=== PATIENT | female | born 1970 | race Two or more races ===

== ENCOUNTER 2020-07-24 07:33 | Emergency (ER) | payer MEDICAID, OTHER ==
[~2020-07-24] VITALS: Ht 162.6 cm; Wt 72.6 kg
[2020-07-24 09:02] VITALS: BP 116/69
[2020-07-24] MEDS ORDERED: METHOCARBAMOL 500 MG TAB PO ONE (09:15)
[2020-07-24] MEDS ORDERED: KETOROLAC TROMETH 60MG/2ML VIAL IM ONE (09:15)
== END 2020-07-24 09:59 | disposition home or self-care (01) ==
LOC: EDBD 07:33 → ER 07:33
DX: M54.31 Sciatica, right side (principal); Z88.0 Allergy status to penicillin
CPT/HCPCS: 96372; 99283; J1885

== ENCOUNTER → 2022-09-09 | Emergency (ER) | payer MEDICAID | END | disposition left against medical advice (07) | LOC: ER 13:46 | DX: T14.90XA Injury, unspecified, initial encounter (principal); Z53.21 Procedure and treatment not carried out due to patient leaving prior to being seen by health care provider; W19.XXXA Unspecified fall, initial encounter; Y93.9 Activity, unspecified; Y92.9 Unspecified place or not applicable; Y99.9 Unspecified external cause status ==

== ENCOUNTER 2023-03-13 21:06 | Emergency (ER) | payer MEDICAID ==
[~2023-03-13] VITALS: Ht 157.5 cm; Wt 91.6 kg
[2023-03-13 21:31] VITALS: BP 143/86; PULSE 68; RESP 20; O2SAT 100
[2023-03-13 22:00] LABS: Urine Bacteria FEW /hpf (None Seen); Urine Blood 2+ /uL (Negative); Urine Specific Gravity 1.011 (1.001-1.035); Urine WBC 1 /hpf (0 - 5)
[2023-03-13 22:16] LABS: Basophils # (auto) 0 10 ^3/uL (0-0.2); Eosinophils # (auto) 0.2 10 ^3/uL (0-0.8); Hemoglobin 10.2 g/dL (12.2-16.2); Mean Corpuscular Hemoglobin 24.4 pg (28.0-32.0); Monocytes # (auto) 0.5 10 ^3/uL (0-1.3); Neutrophils # (auto) 3.5 10 ^3/uL (1.6-8.6); Red Blood Cells 4.18 10^6/uL (4.0-5.20)
[2023-03-13 22:18] LABS: Basophils % (auto) 0.5 % (0.0-2.0); Eosinophils % (auto) 3.1 % (0.0-7.0); Hematocrit 32.3 % (36.0-46.0); Lymphocytes # (auto) 3.1 10 ^3/uL (0.4-5.4); Lymphocytes % (auto) 41.7 % (10.0-50.0); Mean Corpuscular Hgb Conc. 31.5 g/dL (32.0-36.0); Mean Corpuscular Volume 77.4 fL (80.0-100.0); Neutrophils % (auto) 47.7 % (37.0-80.0); Red Cell Distribution Width 16.6 % (11.8-14.3); White Blood Cell 7.4 10^3/uL (4.4-10.8)
[2023-03-13 22:33] LABS: Albumin 3.6 g/dL (3.4-5.0); Calcium 9.3 mg/dL (8.5-10.1)
[2023-03-13 22:36] LABS: BUN/Creatinine Ratio 14.9 (10.0-20.0); Bilirubin, Total 0.4 mg/dL (0.2-1.0); Total Protein 7.7 g/dL (6.4-8.2)
== END 2023-03-14 00:19 | disposition home or self-care (01) ==
LOC: ER 21:09
DX: N92.6 Irregular menstruation, unspecified (principal); E66.01 Morbid (severe) obesity due to excess calories; Z68.36 Body mass index [BMI] 36.0-36.9, adult; Z88.0 Allergy status to penicillin
CPT/HCPCS: 36415; 80053; 81001; 85025; 86850; 86900; 86901

== ENCOUNTER 2023-04-02 18:51 | Emergency (ER) | payer MEDICAID ==
[~2023-04-02] VITALS: Ht 157.5 cm; Wt 93.6 kg
[2023-04-02 19:33] VITALS: BP 146/71
[2023-04-02] MEDS ORDERED: KETOROLAC TROMETH 30 MG/ML 1ML VIAL IM ONE (22:00)
[2023-04-02] MEDS ORDERED: IBUP-1456 PO (22:04)
== END 2023-04-02 22:21 | disposition home or self-care (01) ==
LOC: ER 18:51
DX: G89.29 Other chronic pain (principal); M25.562 Pain in left knee; M25.561 Pain in right knee; M54.50 Low back pain, unspecified; E11.9 Type 2 diabetes mellitus without complications; J45.909 Unspecified asthma, uncomplicated; M19.90 Unspecified osteoarthritis, unspecified site; Z88.0 Allergy status to penicillin; Z79.1 Long term (current) use of non-steroidal anti-inflammatories (NSAID)
CPT/HCPCS: 96372; 99283; J1885

== ENCOUNTER 2023-08-16 16:37 | Emergency (ER) | payer MEDICAID ==
[~2023-08-16] VITALS: Ht 170.2 cm; Wt 95.2 kg
[~2023-08-16 16:37] MED LIST: IBUP-1456 PO
[2023-08-16] MEDS ORDERED: traMADol HCL 50 MG TAB PO ONE (17:45)
[2023-08-16 18:08] VITALS: BP 141/85; PULSE 103; RESP 15; TEMP 98.7; O2SAT 98
[2023-08-16] MEDS ORDERED: PERCOT PO (18:47)
== END 2023-08-16 19:00 | disposition home or self-care (01) ==
LOC: ER 16:37
DX: M25.562 Pain in left knee (principal); M25.561 Pain in right knee; J45.909 Unspecified asthma, uncomplicated; E11.9 Type 2 diabetes mellitus without complications; Z88.0 Allergy status to penicillin

== ENCOUNTER 2025-01-03 14:41 | Emergency (ER) | payer MEDICAID ==
[~2025-01-03] VITALS: Ht 165.1 cm; Wt 66.5 kg
[~2025-01-03 14:41] MED LIST changes: +PERCOT PO
[2025-01-03 15:08] VITALS: BP 119/77; PULSE 83; RESP 16; TEMP 97.6; O2SAT 99
--- NOTE | 2025-01-03 15:34 | ED.PDOC ---
Musculoskeletal HPI Comments 54-year-old female presented to the [facility] (formerly [facility]) complaining of left shoulder and also the right knee, the left shoulder she fell sometime three weeks ago and four the right knee, patient is post of total knee replacement and she stays she is still having pain in a around the knee and she can not Band-Aid as much as she want to Chief Complaint: Fall Injury Time Seen by MD: 15:04 Primary Care Provider: UNKNOWN Reviewed Notes: Nurses Notes, Medications, Allergies Allergies: Coded Allergies: Penicillins (Verified Allergy, Unknown, 07/24/20) Home Meds Active Scripts Cyclobenzaprine Hcl (Cyclobenzaprine Hcl) 10 Mg Tab, 10 MG PO TID for 10 Days, #30 TAB Prov:HILLARY PEGUERO MD 01/03/25 Diclofenac Potassium (Diclofenac Potassium) 50 Mg Tab, 1 TAB PO TIDP for 10 Days, #30 TAB Prov:HILLARY PEGUERO MD 01/03/25 Oxycodone W/ Acetaminophen (Percocet 5/325MG) 1 Tab Tb, 1 TAB PO Q8HP PRN, #20 TAB Prov:MAIN ARTHUR 08/16/23 Ibuprofen (Ibuprofen) 800 Mg Tab, 1 TAB PO Q6HP PRN, #30 TAB 0 Refills Prov:KAVON GRIGGS 04/02/23 Information Source: Patient Mode of Arrival: Ambulatory Location: Left, Right Extremity Location: Knee, Shoulder Timing: Hours Severity: Mild, Moderate Able to Move Extremity: Yes Bear Weight: Fully Pain: Moderate Hand Dominance: Right Mechanism: None Circumstances: Fall Onset of Symptoms: After Trauma Symptoms: Pain Last Tetanus: UTD Associated signs and symptoms: Shoulder pain Past Medical History PAST MEDICAL HISTORY: Arthritis, Asthma, DM Surgical History (Other): Right knee total Tummy tuck REPORTING CONSULTANT History: No Pertinent REPORTING CONSULTANT History Family History Family History: Reviewed,noncontributory to illness Social History Smoker: Non-Smoker Alcohol: Denies ETOH Use Drugs: Denies Drug Use Lives In: Home Constitutional: denies: chills, diaphoresis, fatigue, fever, malaise, sweats, weakness, others EENTM: denies: blurred vision, double vision, ear bleeding, ear discharge, ear drainage, ear pain, ear ringing, eye pain, eye redness, hearing loss, mouth pain, mouth swelling, nasal discharge, nose bleeding, nose congestion, nose pain, photophobia, tearing, throat pain, throat swelling, voice changes, others Respiratory: denies: cough, hemoptysis, orthopnea, SOB at rest, shortness of breath, SOB with excertion, stridor, wheezing, others Cardiovascular: denies: chest pain, dizzy spells, diaphoresis, Dyspnea on exertion, edema, irregular heart beat, left arm pain, lightheadedness, palpitations, PND, syncope, others Gastrointestinal: denies: abdomen distended, abdominal pain, blood streaked bowels, constipated, diarrhea, dysphagia, difficulty swallowing, hematemesis, melena, nausea, poor appetite, poor fluid intake, rectal bleeding, rectal pain, vomiting, others Genitourinary: denies: abnormal vagina bleeding, burning, dyspareunia, dysuria, flank pain, frequency, hematuria, incontinence, pain, , vagina discharge, urgency, others Neurological: denies: dizziness, fainting, headache, left sided numbness, left sided weakness, numbness, paresthesia, pre-existing deficit, right sided numbness, right sided weakness, seizure, speech problems, tingling, tremors, weakness, others Musculoskeletal: reports: joint pain, muscle stiffness, others (Left shoulder bicipital bursitis and right knee painful postop); denies: back pain, gout, joint swelling, muscle pain, neck pain Integumetry: denies: bruises, change in color, change in hair/nails, dryness, laceration, lesions, lumps, rash, wounds, others Allergic/Immunocompromised: denies: Difficulty Healing, Frequent Infections, Hives, Itching, others Hematologic/Lymphatic: denies: anemia, blood clots, easy bleeding, easy bruising, swollen glands, others Endocrine: denies: excessive hunger, excessive sweating, excessive thirst, excessive urination, flushing, intolerance to cold, intolerance to heat, unexplained weight gain, unexplained weight loss, others Psychiatric: denies: anxiety, bipolar disorder, depression, hopeless, panic disorder, schizophrenia, sleepless, suicidal, others All Other Systems: Reviewed and Negative Physical Exam General Appearance: Mild Distress HEENT: Normal ENT Inspection, PERRL/EOMI Neck: Full Range of Motion, Non-Tender, Normal, Normal Inspection Respiratory: Chest Non-Tender, Lungs Clear, No Accessory Muscle Use, No Respiratory Distress, Normal Breath Sounds Cardiovascular: No Edema, No JVD, No Murmur, No Gallop, Normal Peripheral Pulses, Regular Rate/Rhythm Breast Exam: Deferred Gastrointestinal: No Organomegaly, Non Tender, No Pulsatile Mass, Normal Bowel Sounds, Soft Genitalia: Deferred Pelvic: Deferred Rectal: Deferred Extremities: Decreased range of motion, No calf tenderness, Normal capillary refill, Normal inspection, Normal range of motion, Non-tender, No pedal edema, Tender Musculoskeletal : Location: Right Extremity Location: Knee, Shoulder Apperance: Limited ROM, Tenderness: Mild, Tenderness: Moderate Neurologic: Alert, shoe turner II-XII nml as Tested, No Motor Deficits, Normal Affect, Normal Mood, No Sensory Deficits Cerebellar Function: Normal Reflexes: Normal Skin: Dry, Normal Color, Warm Peripheral Pulses: 1+ carotid (R), 1+ carotid (L) Lymphatic: No Adenopathy Was a procedure done? Was a procedure done?: No Differential Diagnosis EXT Differential Diagnosis: Sprain, Arthritis, Bursitis X-Ray, Labs, Meds, VS Vital Signs Date Time Temp Pulse Resp B/P (MAP) Pulse Ox O2 Delivery O2 Flow Rate FiO2 01/03/25 15:08 97.6 83 16 119/77 (91) 99 97.6 01/03/25 15:08 83 16 99 Room Air 01/03/25 14:58 97.6 83 16 119/77 (91) 99 97.6 X-Ray, Labs, Meds, VS Comment [facility] in the [facility] patient had a fall last month and hurt her left shoulder She has tender right knee from total knee replacement The x-ray to the left shoulder is normal Patient will be discharged home to follow up with her PCP Time of 1ST Reevaluation: 15:04 Reevaluation 1ST: Unchanged Time of 2ND Reevaluation: 16:51 Reevaluation 2ND: Unchanged Consultation: PCP Patient Education/Counseling: Diagnosis, Treatment, Prognosis, Need For Follow Up Family Education/Counseling: Diagnosis, Treatment, Prognosis, Need For Follow Up Departure 1 Departure Time of Disposition: 16:49 Impression: Primary Impression: Fall at home Additional Impressions: Bursitis of left shoulder Bilateral chronic knee pain Disposition: 01 HOME / SELF CARE / HOMELESS Condition: Fair Additional Instructions: Use shower on the left shoulder You with the orthopedist for the right knee e-Prescriptions Cyclobenzaprine Hcl (Cyclobenzaprine Hcl) 10 Mg Tab 10 MG PO TID for 10 Days, #30 TAB Prov: HILLARY PEGUERO MD 01/03/25 Diclofenac Potassium (Diclofenac Potassium) 50 Mg Tab 1 TAB PO TIDP for 10 Days, #30 TAB Prov: HILLARY PEGUERO MD 01/03/25 Discharged With: Self Critical Care Note Critical Care Time?: No Stability Stability form required: No Heart Score Heart Score: Heart Score Response (Comments) Value History N/A 0 EKG N/A 0 Age 45-64 1 Risk Factors 1 or 2 risk factors 1 Troponin N/A 0 Total 2 HILLARY PEGUERO MD Jan 03, 2025 15:34
--- NOTE | 2025-01-03 16:09 | DVH ---
CLINICAL INDICATION: fall TECHNIQUE: 2-view left shoulder XY L SHOULDER 2+ VIEW XRAY Comparison: None FINDINGS/IMPRESSION: : There is no evidence of acute fracture or dislocation. Soft tissues are unremarkable.
[2025-01-03] MEDS ORDERED: CYCL-839 PO (16:53)
[2025-01-03] MEDS ORDERED: DICL50TA2 PO (16:53)
== END 2025-01-03 16:59 | disposition home or self-care (01) ==
LOC: ER 14:41
DX: M75.52 Bursitis of left shoulder (principal); G89.29 Other chronic pain; M25.561 Pain in right knee; M25.562 Pain in left knee; E11.9 Type 2 diabetes mellitus without complications; J45.909 Unspecified asthma, uncomplicated; M19.90 Unspecified osteoarthritis, unspecified site; Z96.651 Presence of right artificial knee joint; Z88.0 Allergy status to penicillin; W18.39XA Other fall on same level, initial encounter; Y93.89 Activity, other specified; Y92.098 Other place in other non-institutional residence as the place of occurrence of the external cause; Y99.8 Other external cause status
CPT/HCPCS: 73030